=== PATIENT | male | born 1960 | race Hispanic/Latino ===

== ENCOUNTER 2021-12-16 14:39 | Emergency (ER) | payer OTHER ==
[~2021-12-16] VITALS: Ht 182.9 cm; Wt 86.2 kg
[~2021-12-16 14:39] MED LIST: ADVIL
[2021-12-16] MEDS ORDERED: METHOCARBAMOL500 MG PO (16:55)
[2021-12-16] MEDS ORDERED: FIORICET 50-301 EACH PO (16:55)
== END 2021-12-16 17:15 | disposition home or self-care (01) ==
LOC: ER 15:00
DX: R51.9 Headache, unspecified (principal); I10 Essential (primary) hypertension; Z20.822 Contact with and (suspected) exposure to COVID-19
CPT/HCPCS: 70450; 83518; 99283; U0002